=== PATIENT | female | born 1960 | race Two or more races ===

== ENCOUNTER 2018-09-25 13:25 | Emergency (ER) | payer OTHER ==
[~2018-09-25] VITALS: Ht 144.8 cm; Wt 52.7 kg
[2018-09-25 15:08] LABS: BASOPHILS # (AUTO) 0.06 x10^3/uL (0-0.1); BASOPHILS % (AUTO) 1 % (0-1); EOSINOPHILS # (AUTO) 0.09 x10^3/uL (0-0.4); EOSINOPHILS % (AUTO) 1 % (1-7); LYMPHOCYTES # (AUTO) 2.23 x10^3/uL (1-3.4); LYMPHOCYTES % (AUTO) 23 % (22-44); MD NO; MEAN CORPUSCULAR HEMOGLOBIN 27.5 pg (27.0-34.8); MEAN CORPUSCULAR HGB CONC 33.9 g/dL (32.4-35.8); MEAN CORPUSCULAR VOLUME 81.2 fL (80-100); MEAN PLATELET VOLUME 7.7 fL (7.4-10.4); MONOCYTES # (AUTO) 0.67 x10^3/uL (0.2-0.8); MONOCYTES % (AUTO) 7 % (2-9); NEUTROPHILS # (AUTO) 6.58 x10^3/uL (1.8-6.8); NEUTROPHILS % (AUTO) 68 % (42-75); PLATELET COUNT 538 x10^3/uL (130-400); RED BLOOD COUNT 3.75 x10^6/uL (3.82-5.3); RED CELL DISTRIBUTION WIDTH 14.3 % (9.6-15.2)
[2018-09-25 15:19] LABS: ALANINE AMINOTRANSFERASE 16 U/L (12-78); ALBUMIN 2.9 g/dL (3.4-5.0); ANION GAP 8 mmol/L (5-15); CALCIUM 8.9 mg/dL (8.5-10.1); CHLORIDE 101 mmol/L (98-107); CREATININE 1.11 mg/dL (0.55-1.02); MICROSCOPIC NOT IND
[2018-09-25 15:23] LABS: ALKALINE PHOSPHATASE 83 U/L (45-117); BILIRUBIN,TOTAL 0.2 mg/dL (0.2-1.0); TROPONIN I < 0.015 ng/mL (0.000-0.045)
[2018-09-25 15:35] LABS: CULTURE INDICATED? NO
--- NOTE | 2018-09-25 17:24 | NUR ---
RECEIVED REPORT FROM PROSPER ZUÑIGA. PT RESTING ON [facility]. NADN. BATES.
[2018-09-25 17:25] VITALS: BP 101/64
--- NOTE | 2018-09-25 17:41 | NUR ---
PT CHART REVIEWED AND PLACED FOR RECHECK.
== END 2018-09-25 18:18 | disposition home or self-care (01) ==
LOC: EDBD 13:25 → ED 15:03
DX: R10.12 Left upper quadrant pain (principal); M54.5 Low back pain; R10.13 Epigastric pain; M51.36 Other intervertebral disc degeneration, lumbar region; I10 Essential (primary) hypertension; E11.9 Type 2 diabetes mellitus without complications
CPT/HCPCS: 36415; 71045; 74177; 80053; 81003; 83690; 84484; 85025; 93005; 99284

== ENCOUNTER 2018-10-08 18:53 | Emergency (ER) | payer OTHER ==
[~2018-10-08] VITALS: Ht 157.5 cm; Wt 50.5 kg
[2018-10-08] MEDS ORDERED: SODIUM CHLORIDE FLUSH 10ML SYR IVF ONE (19:30)
[2018-10-08 19:54] LABS: BASOPHILS % (AUTO) 1 % (0-1); EOSINOPHILS # (AUTO) 0.07 x10^3/uL (0-0.4); EOSINOPHILS % (AUTO) 1 % (1-7); LYMPHOCYTES # (AUTO) 2.37 x10^3/uL (1-3.4); LYMPHOCYTES % (AUTO) 25 % (22-44); MD NO; MEAN CORPUSCULAR HEMOGLOBIN 27.2 pg (27.0-34.8); MEAN CORPUSCULAR HGB CONC 34.2 g/dL (32.4-35.8); MEAN CORPUSCULAR VOLUME 79.6 fL (80-100); MEAN PLATELET VOLUME 7.7 fL (7.4-10.4); MONOCYTES # (AUTO) 0.64 x10^3/uL (0.2-0.8); MONOCYTES % (AUTO) 7 % (2-9); NEUTROPHILS % (AUTO) 66 % (42-75); PLATELET COUNT 442 x10^3/uL (130-400); RED BLOOD COUNT 4.07 x10^6/uL (3.82-5.3); RED CELL DISTRIBUTION WIDTH 14.5 % (9.6-15.2)
[2018-10-08 19:59] LABS: ALANINE AMINOTRANSFERASE 15 U/L (12-78); ALBUMIN 3.3 g/dL (3.4-5.0); ANION GAP 5 mmol/L (5-15); CALCIUM 9.4 mg/dL (8.5-10.1); CHLORIDE 105 mmol/L (98-107); CREATININE 0.92 mg/dL (0.55-1.02)
[2018-10-08 20:01] LABS: ALKALINE PHOSPHATASE 92 U/L (45-117); BILIRUBIN,TOTAL 0.4 mg/dL (0.2-1.0); INTERNATIONAL NORMALIZED RATIO 1.03 (0.93-1.1); PROTHROMBIN TIME 10.8 Seconds (9.6-11.5); TOTAL PROTEIN 9.3 g/dL (6.4-8.2)
--- NOTE | 2018-10-08 20:12 | NUR ---
URINE WAS COLLECTED AND SENT TO LAB. JEREMIAH FRAIRE HAS BEEN IN TO EVAL PT. AND DISCUSS POC.
[2018-10-08 20:14] LABS: MICROSCOPIC INDICATED
--- NOTE | 2018-10-08 20:23 | NUR ---
PT. OUT OF ROOM FOR IMAGING.
[2018-10-08] MEDS ORDERED: KETOROLAC 30 MG/1 ML ONE (20:25)
[2018-10-08] MEDS ORDERED: HYDROcodone/APAP 5/325 TABLET ONE (20:25)
--- NOTE | 2018-10-08 20:29 | NUR ---
REMAINS OUT OF ROOM FOR IMAGING; AWATING RETURN.
[2018-10-08] MEDS ORDERED: HYDROcodone/APAP 5/325 TABLET PO ONE (20:30)
[2018-10-08] MEDS ORDERED: KETOROLAC 30 MG/1 ML IVPush ONE (20:30)
[2018-10-08 20:42] LABS: CULTURE INDICATED? NO
[2018-10-08 20:48] LABS: TROPONIN I < 0.015 ng/mL (0.000-0.045)
--- NOTE | 2018-10-08 21:11 | NUR ---
JEREMIAH FRAIRE IN TO DISCUSS RESULTS AND PLAN FOR D/C WITH PT. AND .
[2018-10-08 21:37] VITALS: BP 109/73
== END 2018-10-08 21:38 | disposition home or self-care (01) ==
LOC: ED 21:32
DX: K29.00 Acute gastritis without bleeding (principal); M25.551 Pain in right hip; F17.200 Nicotine dependence, unspecified, uncomplicated; I10 Essential (primary) hypertension; E11.9 Type 2 diabetes mellitus without complications
CPT/HCPCS: 36415; 73502; 76700; 80053; 81001; 83690; 84484; 85025; 85610; 93005; 96374; 99284; J1885